=== PATIENT | male | born 1940 | race Caucasian/White ===

== ENCOUNTER 2021-07-02 04:11 | Emergency (ER) | payer OTHER, MEDICAID ==
[~2021-07-02] VITALS: Ht 152.4 cm; Wt 54.4 kg
[2021-07-02] MEDS ORDERED: OXYMETAZOLINE HCL 0.05% NASAL SPRAY NS ONE (04:15)
--- NOTE | 2021-07-02 04:15 | NUR ---
Patient to ER bed 2 to gown for evaluation. Side rails up. Report given to
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
--- NOTE | 2021-07-02 04:20 | NUR ---
BARB Hutson at bedside examining patient.
[2021-07-02 04:33] VITALS: BP_SYST 103
--- NOTE | 2021-07-02 04:35 | NUR ---
MD AT BEDSIDE ATTEMPTING TO HAVE PT BLOW NOSE, SPRAY AFARIN & PLACE GAUZE/ RHINO ROCKET IN NOSE TO STOP BLEEDING. PT IS NOT COOPERATIVE AND ATTEMPTING TO REMOVE SUPPLIES FROM NOSE. SOFT WRIST RESTRAINTS APPLIED TO PT PER MD ORDER.
--- NOTE | 2021-07-02 04:41 | NUR ---
PT IS BRITISH SPEAKING. BROUGHT FROM UNKNOWN FACILITY WITH NO INFORMATION SENT. (ADDRESS [address] [facility]). PT HAS NOSEBLEED SINCE 0200 TODAY. PT WILL NOT HOLD PRESSURE. EMS IS NOT HOLDING PRESSURE UPON ARRIVAL. PT HAS HX HTN, KIDNEY FAILURE WITH DIALYSIS, CHF, AND BILATERAL ABOVE THE KNEE AMPUTATIONS. UNKNOWN IF PT IS VACCINATED AGAINST COVID 19. PT IS POOR HISTORIAN WITH ELECTRICIAN OFFICE PRESENT AND WILL NOT FOLLOW COMMANDS.
--- NOTE | 2021-07-02 05:04 | NUR ---
SOFT RESTRAINTS REMOVED BY RN. PT INSTRUCTED BY AUXILIARY POWER EQUIPMENT OPERATOR NOT TO REMOVE GAUZE FROM NOSE. PT AGREES.
[2021-07-02 05:29] LABS: HEMATOCRIT 32.6 % (36-54); HEMOGLOBIN 10.7 g/dL (14.0-18.0); MEAN CORPUSCULAR HEMOGLOBIN 32 pg (27-31); MEAN CORPUSCULAR HGB CONC 33 % (32-36); MEAN CORPUSCULAR VOLUME 97 fL (79.0-98.0); PLATELET COUNT (AUTO) 210 K/uL (130-430); RED BLOOD CELL COUNT(AUTO) 3.38 MIL/uL (4.2-6.2); RED CELL DISTRIBUTION WIDTH 16.3 % (9.0-15.0); WHITE BLOOD COUNT (AUTO) 9.8 K/uL (4.8-10.8)
[2021-07-02 05:40] LABS: PROTHROMBIN TIME 10.3 SECS (9.5-12.5)
--- NOTE | 2021-07-02 05:50 | NUR ---
PT PULLED OUT GAUZE AND RHINO ROCKET. RN SWABBED NOSE WITH GAUZE AND PT IS NO LONGER ACTIVELY BLEEDING.
[2021-07-02 06:57] LABS: ANION GAP 15 (5-15); CALCIUM 7.8 mg/dL (8.4-11.0); CHLORIDE 94 mmol/L (98-107); GLUCOSE 150 mg/dL (70-99); POTASSIUM 4.8 mmol/L (3.5-5.1); SODIUM SERUM 131 mmol/L (136-145); UREA NITROGEN, BLOOD 61 mg/dL (8-21)
--- NOTE | 2021-07-02 07:00 | NUR ---
Report given to ARNEL Farnsworth of "[facility]" Notified kali RN that patient is being discharged back to facility and printed d/c instructions on physical chart. Pt cleansed to remove blood from face. Previously removed Rhino Rocket to both nostrils; however, no bleeding after removal.
[2021-07-02 07:02] LABS: ALANINE AMINOTRANSFERASE 17 U/L (12-78); ALBUMIN 3.2 g/dL (3.4-4.8); ASPARTATE AMINOTRANSFERASE 16 U/L (10-37); TOTAL BILIRUBIN 0.2 mg/dL (0.0-1.0)
--- NOTE | 2021-07-02 07:15 | NUR ---
pt. sleeping, easily arousable, no request, waitting for transfer back to facility
[2021-07-02 08:15] VITALS: BP_SYST 114
--- NOTE | 2021-07-02 08:17 | NUR ---
Patient and [facility] given written and verbal discharge instructions and verbalizes understanding. ER discussed with patient the results and treatment provided. Patient in stable condition. Patient educated on pain management and to follow up with PMD. Pain Scale 0. Opportunity for questions provided and answered. Report given to Ben Costello.
== END 2021-07-02 08:15 | disposition home or self-care (01) ==
LOC: SED 04:11
DX: R04.0 Epistaxis (principal); I10 Essential (primary) hypertension; Z79.899 Other long term (current) drug therapy
CPT/HCPCS: 36415; 80053; 83051; 85014; 85048; 85049-TC; 85610-TC; 86886; 86900; 86901; 99285